=== PATIENT | female | born 1985 | race African-American/Black ===

== ENCOUNTER 2020-01-05 05:48 | Emergency (ER) | payer OTHER, SELFPAY ==
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
[2020-01-05] MEDS ORDERED: Lidocaine 1% 20 ML MDV ONE (07:41)
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
[2020-01-05 08:16] LABS: #Basophils 0.1 thou/uL (0.0-0.2); #Eosinphils 0.1 thou/uL (0.0-0.7); #Lymphocytes 1.3 thou/uL (1.20-3.40); #Monocytes 0.4 thou/uL (0.11-0.59); %Basophils 1.1 % (0.0-1.0); %Eosinophils 0.7 % (0.0-10.0); %Monocytes 4.5 % (0.0-10.0); %Neutrophils 76.7 % (42.0-75.0); Hemoglobin 12.6 g/dL (12.0-16.0); Mean Corpuscular HGB CONC 31.9 g/dL (32.0-36.0); Mean Corpuscular Hemoglobin 29.6 pg (27.0-31.0); Mean Corpuscular Volume 92.8 fL (78.0-98.0); Mean Platelet Volume 10.7 fL (7.4-10.4); Platelet Count 212 thou/uL (130-400); RBC Distribution Width 12.3 % (11.5-14.5); Red Blood Cell (RBC) Count 4.28 mill/uL (4.20-5.40); White Blood Cell (WBC) Count 7.8 thou/uL (4.8-10.8)
[2020-01-05 08:23] LABS: Prothrombin Time 13.9 sec (12.0-14.7)
[2020-01-05 08:24] LABS: BHCG - Serum Negative (NEGATIVE); Pregs Control Background? CLEAR/WHITE (CLR/WHITE); Pregs Control Bar Appear? YES (CONTROL BAR)
[2020-01-05 08:33] LABS: ALT (SGPT) 11 U/L (8-55); AST (SGOT) 21 U/L (5-34); Albumin 4.1 g/dL (3.5-5.0); Alkaline Phosphatase 70 U/L (40-110); Anion Gap 14 mmol/L (10-20); BUN (Urea Nitrogen) 12 mg/dL (7.0-18.7); Calc. Creatinine Clearance 0 mL/min (70-130); Carbon Dioxide 23 mmol/L (22-29); Chloride 107 mmol/L (98-107); Estimated GFR-MDRD Greater than 90; Glucose 85 mg/dL (70-105); Potassium 3.9 mmol/L (3.5-5.1); Protein, Total 7.1 g/dL (6.0-8.3); Sodium 140 mmol/L (136-145)
[2020-01-05] MEDS ORDERED: Boostrix 0.5 ML VIAL ONE (09:24)
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
[2020-01-05] MEDS ORDERED: Ibuprofen 800 MG TAB ONE (09:53)
[2020-01-05] MEDS ORDERED: Cyclobenzaprine 10 MG TAB ONE (09:53)
[2020-01-05] MEDS ORDERED: Iopamidol 370 76% 100 ML VIAL ONE (11:01)
== END 2020-01-05 10:05 | disposition home or self-care (01) ==
LOC: MADERS 05:48
DX: S01.111A Laceration without foreign body of right eyelid and periocular area, initial encounter (principal); S27.329A Contusion of lung, unspecified, initial encounter; E04.1 Nontoxic single thyroid nodule; V89.2XXA Person injured in unspecified motor-vehicle accident, traffic, initial encounter
CPT/HCPCS: 12011; 70450; 71045; 71260; 72125; 74177; 80053; 84703; 85025; 85610; 90471; 90715; G0390; Q9967

== ENCOUNTER 2020-01-15 13:07 | Emergency (ER) | payer SELFPAY | END 2020-01-15 13:36 | disposition home or self-care (01) | LOC: MADERS 13:07 | DX: S01.81XD Laceration without foreign body of other part of head, subsequent encounter (principal); X58.XXXD Exposure to other specified factors, subsequent encounter ==